=== PATIENT | female | born 2005 | race Hispanic/Latino ===

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

== ENCOUNTER 2024-03-18 17:56 | Emergency (ER) | payer OTHER ==
[~2024-03-18] VITALS: Ht 157.5 cm; Wt 92.5 kg
[~2024-03-18 17:56] MED LIST: GLUCOPHAGE500 MG PO; PRINIVIL20 MG PO
[2024-03-18] MEDS ORDERED: PRENATAL FORMU1 EAC3 PO (19:32)
[2024-03-18] MEDS ORDERED: MORPHINE SULFATE 10 MG/ML VIAL IM ONE (19:45)
[2024-03-18] MEDS ORDERED: ACETAMINOPHEN 500 MG TAB PO ONE (20:45)
[2024-03-18] MEDS ORDERED: CYCLOBENZAPRINE HCL 10 MG TAB PO ONE (20:45)
[2024-03-18] MEDS ORDERED: HYDROCODON-ACE1 EA10 PO (22:15)
[2024-03-18] MEDS ORDERED: CYCLOBENZAPRINE10 MG PO (22:15)
[2024-03-18] MEDS ORDERED: HYDROCODONE BIT/ACETAMINOPHEN 5/325 MG 1 TAB HOME.PACK PO ONE (22:30)
[2024-03-18 22:51] VITALS: BP 120/73
== END 2024-03-18 22:51 | disposition home or self-care (01) ==
LOC: ED 17:56
DX: O9A.211 Injury, poisoning and certain other consequences of external causes complicating pregnancy, first trimester (principal); S39.012A Strain of muscle, fascia and tendon of lower back, initial encounter; X50.9XXA Other and unspecified overexertion or strenuous movements or postures, initial encounter; Z79.899 Other long term (current) drug therapy; Z3A.13 13 weeks gestation of pregnancy
CPT/HCPCS: 96372; 99283-25; A9270; J2270